=== PATIENT | male | born 1990 | race American Indian/Alaskan Native ===

== ENCOUNTER 2022-06-03 12:24 | Emergency (ER) | payer OTHER ==
[2022-06-03] MEDS ORDERED: SODIUM CHLORIDE 0.9% IRR 500 ML BOTTLE IR ONE (18:15)
[2022-06-03] MEDS ORDERED: LIDOCAINE (2%) 20 MG/1 ML VIAL 20 ML MDV INFILTRATI ONE (18:15)
[2022-06-03] MEDS ORDERED: TETANUS,DIPH,PERTUSS(ACELL) VACCINE 0.5 ML SYRINGE IM ONE (18:15)
--- NOTE | 2022-06-03 18:21 | Emergency Department Report ---
ED Laceration HPI - HPI Chief Complaint: Wound/Laceration Stated Complaint: CUT FINGER ON RIGHT HAND Time Seen by Provider: 06/03/22 17:55 Occurred When: Today Location: Upper Extremity Severity: mild (Right index finger) Tetanus Status: Not up to Date Laceration Symptoms: Yes Pain, No Foreign Body Sensation, No Numbness, No Weakness Other History: 32-year-old male with no significant past medical history reports to the ER after sustaining a laceration to his right index finger due to a conveyor belt. Patient reports no other acute symptoms. Full range of motion intact. Bleeding is controlled with bandages. Tetanus shot is not up-to-date. ED Review of Systems ROS: Stated complaint: CUT FINGER ON RIGHT HAND Other details as noted in HPI Comment: All other systems reviewed and negative Skin: other (Laceration right index finger) ED Past Medical Hx - Past Medical History Previous Medical History?: No - Medications Home Medications: Home Medications Medication Instructions Recorded Confirmed Last Taken Type cephALEXin [Keflex] 500 mg PO Q12HR 7 Days #14 cap 06/03/22 Unknown Rx Laceration Physical Exam - Exam General: Vital signs noted. No distress. Alert and acting appropriately. Patient in no acute distress. Patient breathing is adequate. Patient is alert and oriented x4. Wound Length (cm): 1 Laceration Location: Upper Extremity (Right index finger laceration about 1 cm) Laceration Exam: Yes Normal Distal CMS, No Foreign Body, No Exposed Tendon, Vessel, or Nerve, No Tendon Injury ED Course Vital Signs 06/03/22 13:09 Temperature 98.3 F Pulse Rate 81 Respiratory 20 Rate Blood Pressure 122/74 [Left] O2 Sat by Pulse 100 Oximetry - Laceration /Wound Repair Right Upper Finger Wound Location: upper extremity (right index finger ) Wound Length (cm): 1 Wound's Depth, Shape: superficial Wound Explored: clean Irrigated w/ Saline (ccs): 500 Betadine Prep?: Yes Volume Anesthetic (ccs): 2 (2% lidocaine) Wound Repaired With: sutures Suture Size/Type: 4:0, nylon Number of Sutures: 6 Progress: Patient tolerated procedure well. ED Medical Decision Making - Medical Decision Making Patient presents to the ER with a 1 cm laceration to the right index finger. No decrease in sensation in his right index finger. Neurological intact. Range of motion intact no concerns for tendon or ligament damage or nerve damage. Patient was given his Tdap shot here in the ER. Patient tolerated the lac repair. [address] Patient informed to follow-up in the ER, urgent care, or his primary care provider to have his sutures taken out in 7 to 10 days. Patient started on a antibiotic just for prophylaxis to prevent infection into his hand. Patient agrees with plan of care and verbalized understanding. Critical care attestation.: If time is entered above; I have spent that time in minutes in the direct care of this critically ill patient, excluding procedure time. ED Disposition Clinical Impression: Laceration of right index finger Qualifiers: Encounter type: initial encounter Damage to nail status: without damage Foreign body presence: without foreign body Qualified Code(s): S61.210A - Laceration without foreign body of right index finger without damage to nail, initial encounter Disposition: 01 HOME / SELF CARE / HOMELESS Is pt being admited?: No Condition: Stable Instructions: Laceration Care, Adult, Wound Care, Adult, Sutures, Jose Manuel, or Adhesive Wound Closure, [id number] Prescriptions: cephALEXin [Keflex] 500 mg PO Q12HR 7 Days #14 cap Referrals: SHELIA CALLEJAS MD [Primary Care Provider] - 3-5 Days Forms: Work/School Release Form(ED)
[2022-06-03 20:17] VITALS: BP 112/76
== END 2022-06-03 20:22 | disposition home or self-care (01) ==
LOC: ED 12:24
DX: S61.210A Laceration without foreign body of right index finger without damage to nail, initial encounter (principal); X58.XXXA Exposure to other specified factors, initial encounter; Y93.89 Activity, other specified; Y92.89 Other specified places as the place of occurrence of the external cause; Y99.8 Other external cause status
CPT/HCPCS: 12001; 90471; 90715; 99282; J3490